=== PATIENT | female | born 1985 | race American Indian/Alaskan Native ===

== ENCOUNTER 2019-04-28 16:24 | Emergency (ER) | payer MEDICAID ==
[2019-04-28 23:28] VITALS: BP 112/71
== END 2019-04-28 19:55 | disposition left against medical advice (07) ==
LOC: TRG 16:24 → ED 16:24 → TRG 16:25 → EDSTATUS 18:59 → ED 19:55
DX: R51 Headache (principal); Z53.21 Procedure and treatment not carried out due to patient leaving prior to being seen by health care provider

== ENCOUNTER 2019-08-20 22:41 | Outpatient (CLI) | payer MEDICAID ==
[2019-08-21 00:35] VITALS: BP 137/87
--- NOTE | 2019-08-21 01:39 | Event Note ---
Date: 08/21/19 (Pt with unchanged cervical exam.) Pt is a 33 y.o. @ term with complaints of ctxs. Her cervical exam remained unchanged @ /3. monitor strip was category 1 with irregular ctxs. She was sent home with labor precautions and was given Extra strength Tylenol and Vistaril for pain and sleep. She has her significant other driving her home. Encouraged to keep scheduled appointment in the office. Left triage area in stable condition.
[2019-08-21] MEDS ORDERED: ACETAMINOPHEN 500 MG TAB PO ONE (01:40)
== END 2019-08-21 02:56 | disposition home or self-care (01) ==
LOC: TRG 22:41 → APU 22:42 → TRG 08-21 02:56
PROVIDERS: ATTEND Obstetrics & Gynecology
DX: O47.1 False labor at or after 37 completed weeks of gestation (principal); Z3A.38 38 weeks gestation of pregnancy
CPT/HCPCS: 59025; Q0177

== ENCOUNTER 2019-08-30 12:17 | Outpatient (CLI) | payer MEDICAID ==
[2019-08-30 12:48] VITALS: BP 133/77
== END 2019-08-30 13:18 | disposition home or self-care (01) ==
LOC: TRG 12:17 → APU 12:18 → TRG 13:18
PROVIDERS: ATTEND Obstetrics & Gynecology
DX: O47.1 False labor at or after 37 completed weeks of gestation (principal); Z3A.40 40 weeks gestation of pregnancy
CPT/HCPCS: 59025